=== PATIENT | female | born 1950 | race Caucasian/White ===

== ENCOUNTER 2017-06-17 10:00 | Outpatient (CLI) | payer MEDICARE ==
--- NOTE | 2017-06-17 13:25 | CT ---
NONCONTRAST LOW DOSE CT PULMONARY LUNG SCAN: DATE: 06/17/17. HISTORY: History of nicotine dependence. History of smoking for 45+ years. Current smoking history of to 1 pack per day. The patient complains of throat and swallowing issues for 1 month. COMPARISON: None available. FINDINGS: There is minimal symmetrical biapical pleural and parenchymal scarring. There are mild emphysematous changes within the upper lobes bilaterally greater on the right. Minimal linear interstitial densit ies are seen in the left upper lobe with slight ground-glass densities which may be related to minima l infectious or inflammatory process, but this could be related to a minimal area of scarring. There is an ill-defined nodular density seen within the superior segment of the right lower lobe whic h is positioned between bronchus and a pulmonary artery. This is difficult to accurately measure giv en proximity to adjacent vessel and in this. The greatest dimension of this nodular-appearing densit y on axial imaging is approximately 6 mm, but on coronal images this measures only approximately 3 mm . No additional pulmonary nodule or mass is seen. There is no pleural effusion identified. There are postsurgical changes of the right shoulder likely related to prior rotator cuff repair with anchor screws within both the glenoid and right humeral head. There is a corticated calcific densit y seen in the region of the coracoid bursa which may represent a small intraarticular loose body. Degenerative changes are noted in the spine. Vascular calcifications are seen in the coronary arteri es as well as involving the thoracic aorta. The lack of intravenous contrast limits sensitivity for evaluation of mediastinum and vascular struct ures, but no definite enlarged lymph nodes are appreciated. The upper abdomen demonstrates a grossly normal nonenhanced CT appearance with vascular calcifications in the visualized proximal abdominal a nick. IMPRESSION: 1. Lung RADS category 2, small difficult to characterize pulmonary nodule superior segment right low er lobe. The greatest dimension is 6 mm. Continued annual screening low-dose CT pulmonary lung scan in 12 months is recommended. 2. Lung RADS category S, vascular calcifications in the coronary arteries and thoracic aorta. 3. Lung RADS category S, minimal linear and slight patchy density in the left upper lobe which could be related to infectious or inflammatory process. POS: [facility]
== END 2017-06-17 10:01 | disposition home or self-care (01) ==
LOC: CT 10:00
PROVIDERS: ATTEND Internal Medicine
DX: F17.210 Nicotine dependence, cigarettes, uncomplicated (principal); R91.1 Solitary pulmonary nodule; I25.10 Atherosclerotic heart disease of native coronary artery without angina pectoris
CPT/HCPCS: G0297